=== PATIENT | female | born 1990 | race Caucasian/White ===

== ENCOUNTER 2018-09-21 10:19 | Emergency (ER) | payer OTHER ==
[~2018-09-21] VITALS: Ht 152.4 cm; Wt 64.0 kg
[2018-09-21 10:42] VITALS: BP 107/66
[2018-09-21] MEDS ORDERED: IBUP-1653 PO (10:46)
== END 2018-09-21 18:07 | disposition left against medical advice (07) ==
LOC: ER 10:19
DX: H92.01 Otalgia, right ear (principal); R51 Headache; R11.10 Vomiting, unspecified; Z53.21 Procedure and treatment not carried out due to patient leaving prior to being seen by health care provider

== ENCOUNTER 2020-12-04 23:14 | Emergency (ER) | payer OTHER ==
[~2020-12-04] VITALS: Ht 152.4 cm; Wt 73.0 kg
[~2020-12-04 23:14] MED LIST: IBUP-1653 PO
[2020-12-05] MEDS ORDERED: ACETAMINOPHEN 325MG TABLET PO STA (01:27)
[2020-12-05 01:36] LABS: CLARITY URINE CLEAR (CLEAR); COLOR URINE YELLOW (YELLOW); KETONES URINE NEGATIVE (NEGATIVE); LEUKOCYTE ESTERASE URINE NEGATIVE (NEGATIVE); NITRITE URINE NEGATIVE (NEGATIVE); OCCULT BLOOD URINE TRACE (NEGATIVE); PROTEIN URINE NEGATIVE (NEGATIVE); SPECIFIC GRAVITY URINE 1.016 (1.005-1.030)
[2020-12-05 02:23] LABS: BASOPHILS % 0.6 % (0.0-2.0); EOSINOPHILS % 0.7 % (0.0-5.0); HEMOGLOBIN. 12.4 g/dL (12.0-16.0); LYMPHOCYTES % 15.5 % (20.0-50.0); MEAN CORPUSCULAR HEMOGLOBIN 30.3 pg (28.0-32.0); MEAN CORPUSCULAR VOLUME 90.1 fL (81.0-99.0); MEAN PLATELET VOLUME 9.8 fl (7.4-10.4); MONOCYTES % 6.9 % (2.0-8.0); NEUTROPHILS % 76.3 % (40.0-76.0); PLATELET 276 x1000/uL (130-400); RED BLOOD CELL COUNT 4.11 mill/uL (4.2-5.4); RED CELL DISTRIBUTION WIDTH 13.3 % (11.6-14.6)
[2020-12-05 02:33] LABS: CHLORIDE 109 mEq/L (98-107)
[2020-12-05 02:45] LABS: B-HCG QUANTITATIVE 690 mIU/mL (<3)
[2020-12-05 05:04] VITALS: BP 114/84
== END 2020-12-05 05:05 | disposition home or self-care (01) ==
LOC: ER 23:14
DX: O20.0 Threatened abortion (principal); Z3A.00 Weeks of gestation of pregnancy not specified; Z88.0 Allergy status to penicillin
CPT/HCPCS: 36415; 76830; 76856; 80053; 81003; 81025; 84702; 85025; 86850; 86900; 99284